=== PATIENT | male | born 2000 | race Caucasian/White ===

== ENCOUNTER 2022-10-26 11:21 | Emergency (ER) | payer OTHER ==
[~2022-10-26] VITALS: Ht 172.7 cm; Wt 68.0 kg
[2022-10-26 11:27] VITALS: BP 143/71; PULSE 81; RESP 16; TEMP 97.9; O2SAT 97
[2022-10-26] MEDS ORDERED: PSEU-307 PO (12:20)
[2022-10-26] MEDS ORDERED: IBUP-1842 PO (12:20)
[2022-10-26] MEDS ORDERED: AMOX500C25 PO (12:20)
[2022-10-26 12:23] VITALS: BP 143/71; PULSE 81; RESP 16; TEMP 97.9; O2SAT 97
== END 2022-10-26 12:23 | disposition home or self-care (01) ==
LOC: MED 11:21
DX: J01.90 Acute sinusitis, unspecified (principal); Z79.899 Other long term (current) drug therapy
CPT/HCPCS: 99283